=== PATIENT | female | born 1975 | race Caucasian/White ===

== ENCOUNTER 2018-05-22 15:53 | Emergency (ER) | payer OTHER ==
[2018-05-22 16:14] VITALS: BMI 34.0
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
[2018-05-22 19:13] VITALS: PULSE 95; RESP 20; O2SAT 98
--- NOTE | 2018-05-23 09:51 | RAD ---
PROCEDURE: Left Knee Radiographs. HISTORY: Pain. COMPARISON: None. FINDINGS: BONES: Normal. No fracture. JOINTS: Normal. No osteoarthritis. JOINT EFFUSION: None. OTHER FINDINGS: The patella is unremarkable IMPRESSION: Normal radiographs of the left knee.
== END 2018-05-22 19:16 | disposition home or self-care (01) ==
LOC: ED 15:53
DX: S83.92XA Sprain of unspecified site of left knee, initial encounter (principal); V49.69XA Unspecified car occupant injured in collision with other motor vehicles in traffic accident, initial encounter